=== PATIENT | male | born 1975 | race African-American/Black ===

== ENCOUNTER 2017-02-19 10:38 | Emergency (ER) | payer SELFPAY ==
[~2017-02-19] VITALS: Ht 177.8 cm; Wt 57.5 kg
[2017-02-19 10:46] VITALS: TEMP 36.3; Ht 177.8 cm; Wt 57.5 kg
[2017-02-19] MEDS ORDERED: OXYCODONE HCL IR 5 MG TAB (IMMEDIATE RELEASE) PO STA (11:09)
[2017-02-19] MEDS ORDERED: CYCLOBENZAPRINE HCL 10 MG TAB PO STA (11:09)
--- NOTE | 2017-02-19 11:14 | EMERGENCY ROOM VISIT NOTE ---
History First contact with patient: 10:59 Chief Complaint: SHOULDER PAIN Stated Complaint: ARM HURTS L SHOULDER Nursing Triage Summary: left shoulder blade feels out of place started yesterday denies any injury History of Present Illness The patient is a 41 year old male who presents to the Emergency Room with complaints of "arm hurts, l shoulder". The patient states that yesterday he began with pain around the shoulder blade on the left side. He notes a little bit of shortness of breath when he takes a deep breath because the pain in the left shoulder. 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 He rates his current pain as a 3/10. It is worse with movement of the left arm. He states that when the pain grabs him he feels as though he is going to fall because of the pain. He denies any chest pain. There is no weakness in the arms or legs. No fevers or chills. Review of Systems A complete 10-point Review of Systems was discussed with the patient, with pertinent positives and negatives listed in the History of Present Illness. All remaining Review of Systems questions can be considered negative unless otherwise specified. Past Medical/Surgical History No pertinent. Family History Noncontributory. Social History Smoking Status: Never Smoker Social History: Patient lives locally. Current/Historical Medications No Active Prescriptions or Reported Meds Allergies Coded Allergies: No Known Allergies (Unverified , 02/19/17) Physical Exam Vital Signs Date Time Temp Pulse Resp B/P (MAP) Pulse Ox O2 Delivery O2 Flow Rate FiO2 02/19/17 12:39 58 18 130/85 99 Room Air 02/19/17 10:46 36.3 63 18 100/69 100 Room Air Physical Exam VITAL SIGNS - Vital signs and nursing notes were reviewed. Stable. No tachycardic and is saturating well on room air 100%. GENERAL -41-year-old male appearing his stated age who is in no acute distress. Communicates well with provider and answers questions appropriately. SKIN - Without rashes. No petechial rashes. The skin overlying the left shoulder blade is unremarkable. No evidence of trauma. HEAD - NC/AT. EYES - Sclera anicteric. EARS - No deformities of external structures noted on gross examination bilaterally. NOSE - Midline and without cyanosis. No epistaxis or purulent drainage noted. MOUTH/OROPHARYNX - Without perioral cyanosis. NECK - Neck with FROM. No meningismus or evidence of nuchal rigidity. LUNGS - Chest wall symmetric without accessory muscle use, intercostals retractions, or central cyanosis. Normal vesicular breath sounds CTA B/L. No wheezes, rales, or rhonchi appreciated. CARDIAC - RRR with S1/S2. No murmur, rubs, or gallops appreciated. ABDOMEN - Abdominal contour normal without pulsations or visible masses. BS normoactive all four quadrants. No tenderness, palpable masses, hepatosplenomegaly, or ascites noted. EXTREMITIES - No clubbing or peripheral cyanosis. No pretibial edema present. There is tenderness overlying the musculature of the medial left scapula. This is exquisitely tender to palpation. +5/5 strength noted in UE/LE bilaterally. NEUROLOGIC - Cranial nerves II through XII grossly intact. Sensory intact to light touch throughout. PSYCH - A&O, and cooperates fully with examiner. Pt is very pleasant and interacts well with examiner. Medical Decision & Procedures ER Provider Diagnostic Interpretation: CHEST ONE VIEW PORTABLE CLINICAL HISTORY: L scapular pain COMPARISON STUDY: No previous studies for comparison. FINDINGS: The cardiac and mediastinal contours are normal. There is no evidence of focal pulmonary consolidation. There is no evidence of failure. No pleural effusions are visualized.[ IMPRESSION: No active disease in the chest. Electronically signed by: Bharathi Scott M.D. 02/19/2017 11:48 AM Dictated Date/Time: 02/19/2017 11:48 AM Laboratory Results 02/19/17 11:15 Red Blood Count 5.81, Mean Corpuscular Volume 73.5, Mean Corpuscular Hemoglobin 23.4, Mean Corpuscular Hemoglobin Concent 31.9, Mean Platelet Volume 9.7, Neutrophils (%) (Auto) 37.0, Lymphocytes (%) (Auto) 49.7, Monocytes (%) (Auto) 8.1, Eosinophils (%) (Auto) 4.6, Basophils (%) (Auto) 0.3, Neutrophils # (Auto) 1.28, Lymphocytes # (Auto) 1.72, Monocytes # (Auto) 0.28, Eosinophils # (Auto) 0.16, Basophils # (Auto) 0.01 02/19/17 11:15 Test 02/19/17 11:15 White Blood Count 3.46 K/uL (4.8-10.8) Red Blood Count 5.81 M/uL (4.7-6.1) Hemoglobin 13.6 g/dL (14.0-18.0) Hematocrit 42.7 % (42-52) Mean Corpuscular Volume 73.5 fL (80-100) Mean Corpuscular Hemoglobin 23.4 pg (25-34) Mean Corpuscular Hemoglobin Concent 31.9 g/dl (32-36) Platelet Count 240 K/uL (130-400) Mean Platelet Volume 9.7 fL (7.4-10.4) Neutrophils (%) (Auto) 37.0 % Lymphocytes (%) (Auto) 49.7 % Monocytes (%) (Auto) 8.1 % Eosinophils (%) (Auto) 4.6 % Basophils (%) (Auto) 0.3 % Neutrophils # (Auto) 1.28 K/uL (1.4-6.5) Lymphocytes # (Auto) 1.72 K/uL (1.2-3.4) Monocytes # (Auto) 0.28 K/uL (0.11-0.59) Eosinophils # (Auto) 0.16 K/uL (0-0.5) Basophils # (Auto) 0.01 K/uL (0-0.2) RDW Standard Deviation 40.5 fL (36.4-46.3) RDW Coefficient of Variation 15.3 % (11.5-14.5) Immature Granulocyte % (Auto) 0.3 % Immature Granulocyte # (Auto) 0.01 K/uL (0.00-0.02) Anion Gap 3.0 mmol/L (3-11) Est Creatinine Clear Calc Drug Dose 71.4 ml/min Estimated GFR () 94.4 Estimated GFR (Non- 81.4 BUN/Creatinine Ratio 6.9 (10-20) Calcium Level 9.0 mg/dl (8.5-10.1) Total Bilirubin 0.4 mg/dl (0.2-1) Aspartate Amino Transf (AST/SGOT) 22 U/L (15-37) Alanine Aminotransferase (ALT/SGPT) 19 U/L (12-78) Alkaline Phosphatase 110 U/L (45-117) Total Creatine Kinase 237 U/L (39-308) Creatine Kinase MB 1.9 ng/ml (0.5-3.6) Creatine Kinase MB Ratio 0.8 (0-3.0) Troponin I < 0.015 ng/ml (0-0.045) Total Protein 7.4 gm/dl (6.4-8.2) Albumin 3.9 gm/dl (3.4-5.0) Globulin 3.5 gm/dl (2.5-4.0) Albumin/Globulin Ratio 1.1 (0.9-2) Medications Administered Medications (Trade) Dose Ordered Sig/Reny Route Start Time Stop Time Status Last Admin Dose Admin Cyclobenzaprine HCl (Flexeril Tab) 10 mg NOW STAT PO 02/19/17 11:09 02/19/17 11:10 DC 02/19/17 11:34 10 MG Oxycodone HCl (Roxicodone Immediate Rel Tab) 5 mg NOW STAT PO 02/19/17 11:09 02/19/17 11:10 DC 02/19/17 11:36 5 MG Medical Decision Patient was seen and evaluated as above. He presents to us today with left scapular pain. On exam it is completely reproducible with palpation. There is evidence of a muscle strain. Chest x-ray negative. EKG reveals sinus bradycardia. He was given the EKG from when he follows up. IV access was initiated, and the above workup was performed. There is no concern leukocytosis , anemia or metabolic abnormality. This further supports the diagnosis of muscle strain. He appears stable for outpatient management. He was given Flexeril and oxycodone here for his pain and notes no improvement but notes that medication generally does not help him. He declines pain medication for home. At this time he appears stable for outpatient management. He is to follow with orthopedics if this persists and his family doctor. He was educated upon management, educated upon worrisome symptoms in which to return, had questions about discharge, and was discharged home in good condition. In the evaluation and treatment of this patient, the following differential diagnoses were considered: Shoulder Contusion, Shoulder Fracture, Shoulder Dislocation, Thoracic Outlet Syndrome, Adhesive Capsulitis, Rotator Cuff Tear, Proximal Clavicle Head Fracture, Apical Pneumonia, Pneumothorax, Hemothorax, or TB. Impression Primary Impression: Strain of left trapezius muscle Additional Impression: Anemia Departure Information Dispostion Home / Self-Care Condition GOOD Prescriptions No Active Prescriptions or Reported Meds Referrals [facility] (PCP) Harshil Chavez, DO Patient Instructions My [facility] Additional Instructions You have been treated in the Emergency Department for L shoulder blade pain, that I believe is a pulled muscle/muscle spasm. You have received pain medicine in the emergency department which impairs your ability to operate a vehicle. It is illegal for you to drive after receiving these medicines. For pain control, you can use the following [id number] medicines: - Regular strength (325mg/tab) Tylenol (acetaminophen) 2 tabs every 4-6 hours as needed. Do not exceed 12 tablets in a 24 hour period. Avoid taking more than 3 grams (3000 mg) of Tylenol per day. This includes any other sources of acetaminophen you may take on a regular basis. - Regular strength (200 mg/tab) Advil (ibuprofen) 1-2 tabs every 4-6 hours as needed. Do not exceed a dose of 3200 mg per day. If this is an acute injury, ice can be applied to the area of pain for the first 3 days to help decrease pain and inflammation. After the first 3 days, a heating pad can be used over the area for continued soothing relief. You should schedule a follow-up appointment in 2-3 days with your Primary Care Provider for further evaluation and treatment of your back pain and Dr. Chavez if persists (orthopedic surgeon). Return to the Emergency Department if your current symptoms worsen despite treatment course outlined above, or if you develop any of the following symptoms : intractable pain despite aforementioned treatment course, loss of control of your bowel or bladder, numbness or tingling in your groin, or development of a fever. Problem Qualifiers
[2017-02-19 11:41] LABS: BASO % 0.3 %; BASO ABS # 0.01 K/uL (0-0.2); EOS % 4.6 %; EOS ABS # 0.16 K/uL (0-0.5); HEMATOCRIT 42.7 % (42-52); HEMOGLOBIN 13.6 g/dL (14.0-18.0); IG# 0.01 K/uL (0.00-0.02); LYMPH % 49.7 %; LYMPH ABS # 1.72 K/uL (1.2-3.4); MEAN CELL VOLUME 73.5 fL (80-100); MEAN CORPUSCULAR HEMOGLOBIN 23.4 pg (25-34); MEAN CORPUSCULAR HGB CONC 31.9 g/dl (32-36); MEAN PLATELET VOLUME 9.7 fL (7.4-10.4); MONO % 8.1 %; MONO ABS # 0.28 K/uL (0.11-0.59); NEUT ABS # 1.28 K/uL (1.4-6.5); PLATELET COUNT 240 K/uL (130-400); RED CELL DISTRIBUTION WIDTH CV 15.3 % (11.5-14.5); RED CELL DISTRIBUTION WIDTH SD 40.5 fL (36.4-46.3); WHITE BLOOD COUNT 3.46 K/uL (4.8-10.8)
--- NOTE | 2017-02-19 11:49 | DIAGNOSTIC IMAGING REPORT ---
CHEST ONE VIEW PORTABLE CLINICAL HISTORY: L scapular pain COMPARISON STUDY: No previous studies for comparison. FINDINGS: The cardiac and mediastinal contours are normal. There is no evidence of focal pulmonary consolidation. There is no evidence of failure. No pleural effusions are visualized.[ IMPRESSION: No active disease in the chest. Electronically signed by: Bharathi Scott M.D. 02/19/2017 11:48 AM Dictated Date/Time: 02/19/2017 11:48 AM
[2017-02-19 11:51] LABS: ALBUMIN 3.9 gm/dl (3.4-5.0); ALT/SGPT 19 U/L (12-78); BLOOD UREA NITROGEN 8 mg/dl (7-18); CARBON DIOXIDE 31 mmol/L (21-32); CREATININE 1.13 mg/dl (0.60-1.40); GLUCOSE 92 mg/dl (70-99); POTASSIUM 4.6 mmol/L (3.5-5.1); SODIUM 138 mmol/L (136-145)
[2017-02-19 11:56] LABS: ALKALINE PHOSPHATASE 110 U/L (45-117); AST/SGOT 22 U/L (15-37); CKMB 1.9 ng/ml (0.5-3.6); TOTAL PROTEIN 7.4 gm/dl (6.4-8.2)
[2017-02-19 12:39] VITALS: BP 130/85; PULSE 58; O2SAT 99
== END 2017-02-19 12:47 | disposition home or self-care (01) ==
LOC: C.EDB 10:40
DX: S46.912A Strain of unspecified muscle, fascia and tendon at shoulder and upper arm level, left arm, initial encounter (principal); X58.XXXA Exposure to other specified factors, initial encounter; Y92.9 Unspecified place or not applicable; D64.9 Anemia, unspecified